=== PATIENT | male | born 1970 | race Two or more races ===

== ENCOUNTER 2025-02-12 09:55 | Outpatient (AMB) | payer BC, SELFPAY ==
[2025-02-12 10:04] VITALS: BP 160/88; PULSE 78; RESP 20; TEMP 35.6; O2SAT 95; BMI 45.8
--- NOTE | 2025-02-12 10:04 | PD.GSCLVISIT ---
Vital Signs - [facility] 02/12/25 10:04 Height 1.7 m Height Method Measured Weight 132.647 kg Weight Measurement Method Standing Scale BMI 45.8 BP 160/88 H Blood Pressure Source Automatic Cuff Blood Pressure Location Left Upper Arm Position Sitting Respiration 20 Pulse 78 Pulse Source Monitor Temp 96.0 F L Temp Source Temporal Artery Scan Pulse Oximetry (%) 95 Oxygen Delivery Method Room Air Med/Allergies Allergies & Medications Allergies No Known Allergies Allergy (Verified 02/12/25 10:30) Medication Reconciliation atorvastatin 20 mg tablet 20 mg PO DAILY 05/27/21 [History Confirmed 02/12/25] ergocalciferol (vitamin D2) 1,250 mcg (50,000 unit) capsule 1,250 mcg PO QWEEK 05/27/21 [History Confirmed 02/12/25] lisinopril 10 mg tablet 10 mg PO DAILY 05/27/21 [History Confirmed 02/12/25] MA Intake Visit Data Collection New Patient or Established: New Patient (never been to [facility]) Seen by Clinical Staff ONLY (RN/MA): No Reason for Visit:: REFERRAL LUMP ON LEFT GROIN Pain Present Currently: No 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 PCP or OBGYN visit in last 3 months: Yes Hx Now: No Do You Feel Safe at Home: Yes Authorities Contacted: N/A Smoking Status Smoking Status: Never smoker Immunization / Flu Flu Vaccine in the Last 12 Months: No Flu Vaccine Exclusion Criteria: Refused by Patient Past Medical History Past Medical History NEUROLOGIC: Negative Neurological Disorders or Seizures CARDIAC: Positive Cardiac Disorders, Hypertension and Hypotension; Negative Congestive Heart Failure RESPIRATORY: Negative Chronic Obstructive Pulmonary Disease (COPD) GASTROINTESTINAL: Negative Gastrointestinal Disorders or Hepatitis GENITOURINARY: Negative Genitourinary Disorders, Renal Disease or Benign Prostatic Hyperplasia ENDOCRINE: Negative Endocrine Disorders, Diabetes Mellitus Type 1 or Diabetes Mellitus Type 2 HEMATOLOGIC: Negative Blood Disorders, Anemia, Leukemia or Clotting Problems OTHER HISTORY: Positive Chicken Pox; Negative Hospitalization, Autoimmune Disease, Shingles, Falls, Blood Transfusions, Blood Transfusion Reaction, Anesthesia Reactions, Chemotherapy, Radiation Therapy, Measles, Mumps or Cancer Surgical History SURGICAL: Positive Abdominal Surgery; Negative Cardiac Surgery, Endocrine Surgery, Ear Surgery or Nephrectomy Social History SMOKING STATUS: Smoking status: Never smoker ALCOHOL: Alcohol Intake: Current HOUSING: Housing: House HPI HPI Narrative 54M with HTN, preDM, HLD referred for left posterior leg lesion. Pt reports he has noted it for years and it causes discomfort, and at one time it was drained by a dr in office but it recurred and has since grown a bit in size. He denies any drainage from the area and has no other complaints PMH: HTN, HLD, preDM PShx: Umbilical and inguinal hernia repairs Meds: Atorvastatin, no antiplt or anticoagulation Allergies: NKDA Social hx: Nonsmoker ROS Review of Systems Systems Reviewed: All systems reviewed, normal except as documented Objective/Exam General General Appearance: alert, cooperative and well groomed Resp Respiratory exam: Absent respiratory distress Extremities Extremities exam: Present other (at the posterior medial aspect of the left upper leg there is a raised soft lesion approx 2cm in transverse dimension, it is mobile with no skin changes) Assessment & Plan Diagnosis / Problem List (1) Sebaceous cyst: Status: Acute Assessment & Plan: 54M with HTN, HLD, preDM presenting with a soft, mobile skin lesion at the left posterior leg possibly sebaceous cyst. I explained that excision is best done in the operating room to ensure the capsule is removed and to control any possible bleeding, and explained risks of infection and recurrence. 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 ([id number]) Patient Portal Questionaires Social History Living Situation History Housing: House Tobacco History Smoking Status: Never smoker Alcohol History Alcohol Intake: Current Domestic Abuse History Do You Feel Safe at Home: Yes Review of Systems Report any current symptoms Only answer those that you have currently: Past Medical History Past Medical History Have you ever been diagnosed with any of the following: Neurological Problems Seizures: No Cardiology Problems Congestive Heart Failure: No Hypertension: Yes Hypotension: Yes Respiratory Problems Chronic Obstructive Pulmonary Disease (COPD): No Stomache/Intestinal Problems Hepatitis: No Genital/Urinary Problems Renal Disease: No Benign Prostatic Hyperplasia: No Endocrine Problems Diabetes Mellitus Type 1: No Diabetes Mellitus Type 2: No Blood Problems Anemia: No Leukemia: No Clotting Problems: No Other Problems Hospitalization: No Autoimmune Disease: No Shingles: No Falls: No Blood Transfusions: No Blood Transfusion Reaction: No Anesthesia Reactions: No Chemotherapy: No Radiation Therapy: No Chicken Pox: Yes Measles: No Mumps: No Cancer: No
== END 2025-02-12 11:08 | disposition home or self-care (01) ==
PROVIDERS: PCP Family Medicine; Referring Provider Family Medicine; Supervising Provider Surgery; Visit Provider Surgery
DX: L72.3 Sebaceous cyst (principal); I10 Essential (primary) hypertension
CPT/HCPCS: 99203; G0463